=== PATIENT | male | born 1970 | race Caucasian/White ===

== ENCOUNTER → 2021-01-27 | Outpatient (CLI) | payer OTHER | LOC: KOH-I 14:29 | DX: M10.9 Gout, unspecified (principal); M79.672 Pain in left foot | CPT/HCPCS: 73630 ==

== ENCOUNTER → 2021-06-17 | Outpatient (CLI) | payer OTHER | LOC: KOH-I 12:52 | DX: M79.605 Pain in left leg (principal) | CPT/HCPCS: 93926; 93971 ==